=== PATIENT | male | born 1940 | race Caucasian/White ===

== ENCOUNTER 2018-07-05 10:20 | Day surgery (SDC) | payer OTHER ==
[~2018-07-05 10:20] MED LIST: AMOX1TAB5 PO; AZO STANDARD95 MG PO; IMODIUM A-D2 MG PO; INTESTINEX1 CA1 PO; LEVAQUIN500 MG PO; PROSCAR5 MG PO; TAMS0.4C PO; TRAM1TAB98 PO
== END 2018-07-05 16:15 | disposition home or self-care (01) ==
LOC: AMB-ENDOS 10:20
DX: C20 Malignant neoplasm of rectum (principal)